=== PATIENT | male | born 1965 | race Caucasian/White ===

== ENCOUNTER 2017-01-14 14:35 | Emergency (ER) | payer OTHER ==
[2017-01-14 14:41] VITALS: BMI 29.8
[2017-01-14] MEDS ORDERED: ONDANSETRON 4 MG/2 ML VIAL IVPUSH ONE (15:27)
[2017-01-14] MEDS ORDERED: SODIUM CHLORIDE 1,000 ML IV STA (15:29)
[2017-01-14] MEDS ORDERED: MAG HYDROX/AL HYDROX/SIMETH 30 ML UNIT-DOSE CUP PO ONE (15:36)
[2017-01-14] MEDS ORDERED: FAMOTIDINE 20 MG/50 ML IVPB 50 ML IVPB ONE ×2 (15:36→16:02)
--- NOTE | 2017-01-14 15:49 | PDOC ---
Attending Attestation - Resident Resident Name: DonnaSantana - ED Attending Attestation I have performed the following: I have examined & evaluated the patient, The case was reviewed & discussed with the resident, I agree w/resident's findings & plan, Exceptions are as noted - HPI HPI: 01/14/17 15:31 51M with h/o bipolar d/o, anxiety, DM, HTN, presenting with chest and abdominal pain. Pt states that the pain began about 5 days ago and has been intermittent but worsened acutely yesterday. Pt attempted to sleep through it by taking sleeping pills. He also endorses SOB. Denies F/C. Denies leg swelling. Denies recent travel/immobilization. No h/o DVT/PE. Pt has + FH of ND. Denies smoking. Denies cocaine or other substance abuse. - Physicial Exam PE: 01/14/17 23:19 Gen: NAD, WDWN, alert HEENT: PERRL, EOMI, moist mucosa Lungs: Bibasilar rales, no wheezes, no rhonchi CV: tachycardic, no m/r/g Abd: soft, nontender, nondistended Ext: No pitting edema - Medical Decision Making 01/14/17 23:21 51 M with chest pain x [address] depressions inferiorly concerning for ischemia. Trop 30. BNP 4000. Differential at this time includes NSTEMI vs massive PE. Bedside echo reveals dilated LEFT ventricle with collapsible RIGHT ventricle. No septal bowing. Lung windows show + B-lines, consistent with pulmonary edema. CXR also consistent with acute pulmonary edema. Bedside DVT study negative for DVT. These findings make NSTEMI more likely than PE. Spoke with [employer] personal vehicle advisor, who recommends transfer for urgent cath. Spoke with Dr. Valdez, who accepts patient for transfer to [facility]. Pt placed on BiPAP, given lasix and nitro, aspirin, lipitor. Transport arranged. Heart Score/ECG Review - History History: Highly suspicious - Electrocardiogram EKG: Significant ST-depression - Age Age: 45-65 - Risk Factors Risk Factors Heart Score: Yes Hx Hypertension, Yes Positive family hx of cardiac disease Based on the list above the patient has:: 1-2 risk factors - Troponin Troponin: >/=3x normal limit - Score Heart Score - Total: 8 - ECG Impressions Comment:: 01/14/17 23:20 Sinus tachycardia, no STEs, inferior ST depressions, no TWIs, intervals wnl
--- NOTE | 2017-01-14 15:52 | PDOC ---
History of Present Illness - History of Present Illness Initial Comments: 01/14/17 15:47 51M w/ hx of HTN, DM, family hx of cardiac disease, bipolar, anxiety presenting with chest and abdominal pain since last night. Pt reports that pains started last night after eating 2 slices of pizza, are severe, worse with exertion and lying down, improved with sitting up. Pt reports associated insomnia, SOB, dry mouth, decreased energy, nausea, 10 episodes of emesis, and a productive cough with clear sputum. Pt reports taking 2 tylenol PMs and 2 other [id number] meds for sleep. He went to urgent care this am, and they sent him to the hospital. Pt presented with his isotope hydrologist. He also reports having a rash 2 weeks ago after going to [facility]. It resolved with oral abx, but developed a L ear infection, treated with eardrops and then oral amoxicillin. He has little ear pain now. 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, works as teacher - Psycho/Social/Smoking Cessation Hx Suicidal Ideation: No Smoking History: Never smoked Information on smoking cessation initiated: No <Santana Thompson - Last Filed: 01/14/17 16:18> <Grace Tyson - Last Filed: 01/14/17 17:50> - Past Medical History Allergies/Adverse Reactions: Allergies Allergy/AdvReac Type Severity Reaction Status Date / Time No Known Allergies Allergy Verified 01/14/17 14:41 Home Medications: Ambulatory Orders Amoxicillin - [Amoxicillin 875mg Tablet -] 875 mg PO BID 01/14/17 Cetirizine HCl [Wal-Zyr] 10 mg PO DAILY 01/14/17 Clonazepam [Klonopin -] 0.5 mg PO DAILY 01/14/17 Divalproex Sodium [Depakote ER] 500 mg PO HS 01/14/17 Enalapril Maleate [Vasotec] 20 mg PO DAILY 01/14/17 Ibuprofen 600 mg PO DAILY 01/14/17 Metformin HCl [Metformin HCl ER] 1,000 mg PO BID 01/14/17 Metformin HCl [Metformin HCl ER] 1,000 mg PO DAILY 01/14/17 Ofloxacin 0.3% Ophth Soln [Ocuflox 0.3% Eye Drops -] 5 ml OP DAILY 01/14/17 Sitagliptin Phosphate [Januvia] 50 mg PO DAILY 01/14/17 Review of Systems - Review of Systems Comments:: 01/14/17 15:53 ENERAL: + fever, no chills, night sweats, + weakness. HEAD, EYES, EARS, NOSE AND THROAT: No change in vision, + ear pain, no sore throat CARDIOVASCULAR: + chest pain and palpitations RESPIRATORY: + cough, no wheezing, or hemoptysis. GASTROINTESTINAL: + nausea and vomiting, no diarrhea, constipation, or blood in the stool. GENITOURINARY: No dysuria, frequency, or urgency MUSCULOSKELETAL: No joint or muscle swelling or pain. SKIN: No rashes or pruritis ENDOCRINE: No increased thirst. No abnormal weight change NEUROLOGIC: No headache, dizziness, loss of consciousness, or change in strength /sensation. <Santana Thompson - Last Filed: 01/14/17 16:18> *Physical Exam - Vital Signs Last Vital Signs Temp Pulse Resp BP Pulse Ox 98.3 F 125 H 18 148/76 97 01/14/17 14:36 01/14/17 14:36 01/14/17 14:36 01/14/17 14:36 01/14/17 14:36 - Physical Exam Comments: 01/14/17 16:09 GENERAL: Awake, alert, and fully oriented, in distress, with his isotope hydrologist sitting next to him HEAD: normocephalic, atraumatic HEENT: PERRLA, EOMI, no effusion or erythema in L ear visualized NECK: Normal ROM, supple, no lymphadenopathy, JVD, or masses HEART: tachcardic, normal rhythm, normal S1 and S2, no murmurs, rubs or gallops , peripheral pulses normal and equal bilaterally. LUNGS: breathing quickly, slightly decreased breath sounds, no wheezing or crackles ABDOMEN: Soft, mildly tender diffusely, nondistended, normoactive bowel sounds. No guarding, no rebound. No masses EXTREMITIES: Normal range of motion, 1+ peripheral edema in b/l LE SKIN: Warm, mildly diaphoretic, no rashes or lesions noted. NEUROLOGICAL: Cranial nerves II through XII grossly intact. Normal speech, normal gait, no focal sensorimotor deficits 01/14/17 16:12 <Santana Thompson - Last Filed: 01/14/17 16:18> - Vital Signs Last Vital Signs Temp Pulse Resp BP Pulse Ox 98.3 F 90 35 H 129/92 89 L 01/14/17 14:36 01/14/17 17:40 01/14/17 17:40 01/14/17 17:40 01/14/17 17:40 <Grace Tyson - Last Filed: 01/14/17 17:50> Procedures - Bedside Ultrasound Bedside Ultrasound: Cardiac Other: TTE, bilat lower ext r/o dvt , lung see mdm <Grace Tyson - Last Filed: 01/14/17 17:50> ED Treatment Course - LABORATORY CBC & Chemistry Diagram: 01/14/17 15:55 01/14/17 15:55 - RADIOLOGY Radiology Studies Ordered: Category Date Time Status CHEST X-RAY PORTABLE* [RAD] Stat Radiology 01/14/17 15:27 Ordered <Santana Thompson - Last Filed: 01/14/17 16:18> - LABORATORY CBC & Chemistry Diagram: 01/14/17 15:55 01/14/17 15:55 - ADDITIONAL ORDERS Additional order review: Laboratory Results 01/14/17 01/14/17 01/14/17 17:04 16:10 15:55 Puncture Site Other ABG pH 7.44 ABG pCO2 at Pt Temp 31.5 L ABG pO2 at Pt Temp 36.6 L* ABG HCO3 21.1 L ABG O2 Sat (Measured) 65.1 L* ABG O2 Content 12.2 L ABG Base Excess -1.6 Senthil Test Not applicable Carboxyhemoglobin 2.0 Methemoglobin 1.0 O2 Delivery Device Room air Oxygen Flow Rate 21% PEEP 0.0 Sodium Potassium Chloride Carbon Dioxide Anion Gap BUN Creatinine Creat Clearance w eGFR Random Glucose Calcium Total Bilirubin AST ALT Alkaline Phosphatase Creatine Kinase Creatine Kinase Index CK-MB (CK-2) Troponin I B-Natriuretic Peptide Cancelled Total Protein Albumin Lipase Urine Color Ltyellow Urine Appearance Clear Urine pH 5.0 Urine Protein Negative Urine Glucose (UA) 3+ H Urine Ketones 2+ H Urine Blood 1+ H Urine Nitrite Negative Urine Bilirubin Negative Urine Urobilinogen Negative Ur Leukocyte Esterase Negative Urine RBC <1 Urine WBC 1 Ur Epithelial Cells Rare Urine Mucus Rare 01/14/17 01/14/17 15:55 15:55 Puncture Site ABG pH ABG pCO2 at Pt Temp ABG pO2 at Pt Temp ABG HCO3 ABG O2 Sat (Measured) ABG O2 Content ABG Base Excess Senthil Test Carboxyhemoglobin Methemoglobin O2 Delivery Device Oxygen Flow Rate PEEP Sodium 139 Potassium 5.5 H Chloride 104 Carbon Dioxide 25 Anion Gap 10 BUN 24 H Creatinine 1.0 Creat Clearance w eGFR > 60 Random Glucose 322 H* Calcium 10.1 Total Bilirubin 0.7 AST 211 H ALT 54 Alkaline Phosphatase 52 Creatine Kinase 1404 H Creatine Kinase Index 7.0 H* CK-MB (CK-2) 98.887 H Troponin I 30.79 H* B-Natriuretic Peptide 4437.80 H Total Protein 6.8 Albumin 2.9 L Lipase 100 Urine Color Urine Appearance Urine pH Urine Protein Urine Glucose (UA) Urine Ketones Urine Blood Urine Nitrite Urine Bilirubin Urine Urobilinogen Ur Leukocyte Esterase Urine RBC Urine WBC Ur Epithelial Cells Urine Mucus 01/14/17 15:55 RBC 4.86 MCV 87.0 MCHC 33.7 RDW 14.8 MPV 7.7 Neutrophils % 79.4 Lymphocytes % 11.8 Monocytes % 8.2 Eosinophils % 0.0 Basophils % 0.6 - Medications Given in the ED: ED Medications Discontinued Medications Generic Name Dose Route Start Last Admin Trade Name Freq PRN Reason Stop Dose Admin Al Hydroxide/Mg Hydroxide 30 ml 01/14/17 15:36 01/14/17 16:09 Mylanta Oral Suspension - PO 01/14/17 15:37 30 ml ONCE ONE Administration Aspirin 81 mg 01/14/17 17:04 01/14/17 17:13 Asa - PO 01/14/17 17:05 81 mg ONCE ONE Administration Aspirin 162 mg 01/14/17 17:14 08/19/17 17:39 Asa - PO 01/14/17 17:15 162 mg ONCE ONE Administration Atorvastatin Calcium 80 mg 01/14/17 17:08 01/14/17 17:13 Lipitor - PO 01/14/17 17:09 80 mg ONCE ONE Administration Sodium Chloride 1,000 mls @ 1,000 mls/hr 01/14/17 15:29 01/14/17 15:59 Normal Saline - IV 01/14/17 16:28 1,000 mls/hr ASDIR STA Administration Famotidine/Sodium Chloride 50 mls @ 100 mls/hr 01/14/17 15:36 01/14/17 16:09 Pepcid 20 Mg Premixed Ivpb - IVPB 01/14/17 16:05 100 mls/hr ONCE ONE Administration Morphine Sulfate 2 mg 01/14/17 17:35 01/14/17 17:39 Morphine Injection - IVPUSH 01/14/17 17:36 2 mg ONCE ONE Administration Ondansetron HCl 4 mg 01/14/17 15:27 01/14/17 15:59 Zofran Injection IVPUSH 01/14/17 15:28 4 mg ONCE ONE Administration Oxycodone/Acetaminophen 1 combo 01/14/17 15:27 01/14/17 15:59 Percocet 5/325 - PO 01/14/17 15:28 1 combo ONCE ONE Administration <Grace Tyson - Last Filed: 01/14/17 17:50> Medical Decision Making - Medical Decision Making 01/14/17 16:12 51M w/ hx of HTN, DM, family hx of cardiac disease, bipolar, anxiety presenting with chest and abdominal pain since last night. Differential includes ACS vs. gastroenteritis vs. GERD vs. anxiety attack vs. pancreatitis. CBC: CMP: EKG: CXR: UA: lipase: ' cardiac profile: BNP: Given maalox, pepcid, zofran. 01/14/17 16:18 <Santana Thompson - Last Filed: 01/14/17 16:18> - Medical Decision Making 01/14/17 17:42 focused ED ultrasound TTE , indication : r/o rv strain hypoxia , rv no significant dilation, good contractility. left ventricle with decreased global contractility, no pericardial effusion. impression: decreased contractility left ventricle, no rv dilation or strain. bilat lung ultrasound, indication: hypoxia, sob bilat lungs scanned in 6 zones. anterior apical a line predominant. multiple B lines mid lateral zone bilaterally, and at bilateral bases no pleural effusion. impression pulmonary edema. bilat lower extremity ultrasound r/o DVT, indication: suspected PE bilateral legs scanned with high frequency linear transducer from common femoral past bifurcation into superficial and deep femoral veins, and in popliteal region from popliteal vein past trifurcation. complete compression at all sites, no visualizatio of clot. impression: no proximal DVT bilat lower extremities, recommend repeat in 5 - 7 days if still symptomatic. [place] 01/14/17 17:46 <Grace Tyson - Last Filed: 01/14/17 17:50>
[2017-01-14] MEDS ORDERED: MAG HYDROX/AL HYDROX/SIMETH 30 ML UNIT-DOSE CUP ONE (16:00)
[2017-01-14 16:05] LABS: BASOPHIL 0.6 % (0-2.0); MCH 29.3 pg (25.7-33.7); MCHC 33.7 g/dl (32.0-35.9); MEAN PLT VOLUME 7.7 fl (7.5-11.1); NEUTROPHILS 79.4 % (42.8-82.8); PLATELET COUNT 306 K/MM3 (134-434); RDW 14.8 % (11.9-15.9); WHITE BLOOD COUNT 16.8 K/mm3 (4.0-10.0)
[2017-01-14 16:25] LABS: URINE APPEARANCE CLEAR; URINE BILIRUBIN NEGATIVE (NEGATIVE); URINE BLOOD 1+ (NEGATIVE); URINE COLOR LTYELLOW; URINE GLUCOSE (UA) 3+ (NEGATIVE); URINE KETONE 2+ (NEGATIVE); URINE LEUK ESTERASE NEGATIVE (NEGATIVE); URINE NITRITE NEGATIVE (NEGATIVE); URINE PROTEIN NEGATIVE (NEGATIVE); URINE UROBILINOGEN NEGATIVE mg/dL (0.2-1.0)
[2017-01-14 16:27] LABS: ALBUMIN 2.9 g/dl (3.4-5.0); ALK PHOS 52 U/L (45-117); ANION GAP 10 (8-16); BILIRUBIN,TOTAL 0.7 mg/dL (0.2-1.0); CALCIUM 10.1 mg/dL (8.5-10.1); CO2 25 mmol/L (21-32); SGOT/AST 211 U/L (15-37); SGPT/ALT 54 U/L (12-78); TOT PROT 6.8 g/dl (6.4-8.2)
[2017-01-14 16:33] LABS: GLUCOSE,RANDOM 322 mg/dL (74-106)
[2017-01-14 16:42] LABS: URINE MUCUS RARE; URINE RBC <1 /hpf (0-3); URINE WBC 1 /hpf (3-5)
[2017-01-14 16:42] LABS: TROPONIN I 30.79 ng/ml (0.00-0.05)
[2017-01-14] MEDS ORDERED: HEPARIN INFUSION - 500 ML IVPB ONE ×2 (16:55→17:01)
[2017-01-14] MEDS ORDERED: HEPARIN NA (PORCINE) 5,000 UNITS/ML 1ML VIAL ONE ×2 (16:55→17:01)
[2017-01-14] MEDS ORDERED: HEPARIN NA (PORCINE) 5,000 UNITS/ML 1ML VIAL IVPUSH PRN ×2 (16:58)
[2017-01-14] MEDS ORDERED: HEPARIN INFUSION - 500 ML IVPB SCH (17:00)
[2017-01-14] MEDS ORDERED: ASPIRIN 81 MG CHEWABLE TABLETS PO ONE ×2 (17:04→17:14)
[2017-01-14] MEDS ORDERED: ATORVASTATIN CA 80 MG TABLET (FP) PO ONE (17:08)
[2017-01-14 17:10] LABS: ARTERIAL BLD GAS O2 SATURATION 65.1 % (90-98.9); ARTERIAL BLOOD GAS BASE EXCESS -1.6 meq/l (-2-2); ARTERIAL BLOOD GAS HCO3 21.1 meq/L (22-26); ARTERIAL BLOOD GAS pH 7.44 (7.35-7.45)
[2017-01-14] MEDS ORDERED: ASPIRIN 81 MG CHEWABLE TABLETS ONE ×2 (17:10→17:12)
[2017-01-14] MEDS ORDERED: ATORVASTATIN CA 80 MG TABLET (FP) ONE (17:10)
[2017-01-14] MEDS ORDERED: ASPIRIN 325 MG TABLET PO ONE (17:12)
[2017-01-14 17:13] LABS: ART PUNCT SITE OTHER; LPM/O2% 21%; PT. ON O2? NO; TYPE OF O2 ROOM AIR
[2017-01-14 17:15] LABS: ARTERIAL BLOOD GAS PO2 36.6 mmHg (80-100)
[2017-01-14 17:33] LABS: INR 1.23 (0.82-1.09); PROTHROMBIN TIME (PATIENT) 13.6 SEC (9.98-11.88)
[2017-01-14] MEDS ORDERED: morphine CARPU-JECT 2 MG/1 ML DISP.SYRIN IVPUSH ONE (17:35)
[2017-01-14] MEDS ORDERED: morphine CARPU-JECT 2 MG/1 ML DISP.SYRIN ONE (17:35)
[2017-01-14 17:36] LABS: ACTIVATED PTT 31.6 SECONDS (26.9-34.4)
[2017-01-14] MEDS ORDERED: NITROGLYCERIN SUBLINGUAL 1/150 0.4 MG TAB SL ONE (17:46)
[2017-01-14] MEDS ORDERED: FUROSEMIDE 40 MG/4 ML INJECTABLE VIAL IVPUSH ONE (18:05)
[2017-01-14 18:06] LABS: ARTERIAL BLD GAS O2 SATURATION 83.3 % (90-98.9); ARTERIAL BLOOD GAS BASE EXCESS -2.3 meq/l (-2-2); ARTERIAL BLOOD GAS HCO3 20.7 meq/L (22-26); ARTERIAL BLOOD GAS pH 7.43 (7.35-7.45)
[2017-01-14 18:09] LABS: ALLENS TEST POSITIVE; ART PUNCT SITE LEFT RADIAL
[2017-01-14 18:10] LABS: LPM/O2% 100%; PT. ON O2? YES; TYPE OF O2 NRB
[2017-01-14 18:11] LABS: ARTERIAL BLOOD GAS PO2 50.9 mmHg (80-100)
[2017-01-14] MEDS ORDERED: FUROSEMIDE 40 MG/4 ML INJECTABLE VIAL ONE (18:23)
[2017-01-14] MEDS ORDERED: NITROGLYCERIN SUBLINGUAL 1/150 0.4 MG TAB ONE (18:23)
[2017-01-14 18:54] VITALS: BP 120/85; PULSE 102; TEMP 98.4
[2017-01-14] MEDS ORDERED: TICAGRELOR 60 MG TABLET PO SCH (22:00)
--- NOTE | 2017-01-15 12:52 | EKG ---
Test Reason : Blood Pressure : / mmHG Vent. Rate : 122 BPM Atrial Rate : 122 BPM P-R Int : 140 ms QRS Dur : 094 ms QT Int : 318 ms P-R-T Axes : 054 029 069 degrees QTc Int : 453 ms SINUS TACHYCARDIA CANNOT RULE OUT INFERIOR INFARCT , AGE UNDETERMINED ABNORMAL ECG NO PREVIOUS ECGS AVAILABLE Confirmed by BRYAN RUBIO MD ([id number]) on 01/15/2017 12:51:50 PM Referred By: Confirmed By:BRYAN RUBIO MD
== END 2017-01-14 18:56 | disposition short-term general hospital (02) ==
LOC: JER 14:35
PROC: 3E0337Z Introduction of Electrolytic and Water Balance Substance into Peripheral Vein, Percutaneous Approach (ICD-10-PCS; principal; 2017-01-14)
PROC: 3E033GC Introduction of Other Therapeutic Substance into Peripheral Vein, Percutaneous Approach (ICD-10-PCS; 2017-01-14)
PROC: 3E033GC Introduction of Other Therapeutic Substance into Peripheral Vein, Percutaneous Approach (ICD-10-PCS; 2017-01-14)
PROC: 3E033NZ Introduction of Analgesics, Hypnotics, Sedatives into Peripheral Vein, Percutaneous Approach (ICD-10-PCS; 2017-01-14)
PROC: 3E033GC Introduction of Other Therapeutic Substance into Peripheral Vein, Percutaneous Approach (ICD-10-PCS; 2017-01-14)
PROC: 3E033GC Introduction of Other Therapeutic Substance into Peripheral Vein, Percutaneous Approach (ICD-10-PCS; 2017-01-14)
PROC: 3E033NZ Introduction of Analgesics, Hypnotics, Sedatives into Peripheral Vein, Percutaneous Approach (ICD-10-PCS; 2017-01-14)
DX: R07.9 Chest pain, unspecified (principal); J81.0 Acute pulmonary edema
CPT/HCPCS: 36415; 36600; 71010-TC; 80053; 81003; 81015; 82375; 82553; 82803; 83050; 83690; 83880; 84484; 85025; 85610; 85730; 93005; 93010; 96361; 96365; 96367; 96374; 96375; 99285-25; J1644